=== PATIENT | male | born 1955 | race Caucasian/White ===

== ENCOUNTER 2016-08-24 09:53 | Emergency (ER) | payer OTHER ==
[2016-08-24 09:57] VITALS: RESP 18
--- NOTE | 2016-08-24 10:10 | CPEKG ---
Heart Rate: 59 RR Interval: 1017 P-R Interval: 128 QRSD Interval: 100 QT Interval: 436 QTC Interval: 432 P [place]: 47 QRS [place]: 60 T Wave [place]: 30 EKG Severity - BORDERLINE ECG - EKG Impression: SINUS RHYTHM EKG Impression: PROBABLE LEFT ATRIAL ABNORMALITY Electronically Signed By: Jorden Beltrán 24-Aug-2016 15:51:41
[2016-08-24] MEDS ORDERED: CLOPIDOGREL BISULFATE 75 MG TAB PO ONE (10:37)
[2016-08-24] MEDS ORDERED: ACETAMINOPHEN 325 MG TAB PO ONE (10:40)
--- NOTE | 2016-08-24 10:43 | EDPHY ---
HPI/HX/ROS/PE/MDM Narrative: Chief complaint: Difficult using tongue and headache HPI: 61-year-old male who noticed 1 week ago they had some difficulty moving food around in his mouth with his tongue. The following day he developed a headache to a 7 8/10. He went to a conference and came back in symptoms have persisted. He was seen by his primary care physician yesterday arrange for outpatient MRI. He was called today and informed that the MRI showed internal carotid artery dissection on the left. He was instructed to come the emergency department for further evaluation. He denies any other neurologic symptoms. No vision changes. No difficulty ambulating. No weakness. No lightheadedness or dizziness. No nausea or vomiting. No chest pain or shortness of breath. 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 This was diagnosed 5 weeks after the onset of symptoms own there is no abnormality identified. He has been taking a statin and 325 mg of aspirin daily since. ROS: 10 point Review of Systems is negative except as noted in the HPI. Physical exam: Gen: Awake, Alert, No Distress HEENT: Nose: no rhinorrhea Eyes: PERRLA, EOMI Mouth: Moist mucosa Neck: Supple, no JVD Chest: nontender, lungs clear to auscultation Heart: S1, S2 normal, no murmur Abd: Soft, non-tender, no guarding Back: no CVA tenderness, no midline tenderness Ext: no edema, non-tender Skin: no rash Neuro: he has leftward tongue deviation, otherwise CN II-XII intact, Sensation grossly intact, Strength 5/5 in bilateral upper and lower extremities NIH score is 1. ED Course: 61-year-old male with a newly diagnosed internal carotid artery dissection. I reviewed his MRI findings with Dr. Pierson, neurology. There is no evidence of ischemic disease or stroke. The dissection is noted on the MRI with and without. Is not with an MRI of the of the brain. There are no other acute findings and a MR. Doctor mackey recommending anti-platelet therapy for him only. As the patient is already taking aspirin daily he will add on Plavix 75 mg. He will see the patient in his office this week. He is not believe the patient needs to be admitted for further workup needs to be initiated at this time. I have discussed this with the patient and he is in agreement. Will discharge. Will. Will given Plavix now and discharged with a prescription for the same follow up with doctor Dangelo. - Data Points Medications Given: Discontinued Medications Acetaminophen (Tylenol) 650 mg PO EDNOW ONE Stop: 08/24/16 10:41 Last Admin: 08/24/16 10:43 Dose: 650 mg Clopidogrel Bisulfate (Plavix) 75 mg PO EDNOW ONE Stop: 08/24/16 10:38 Last Admin: 08/24/16 10:42 Dose: 75 mg General Time Seen by Provider: 08/24/16 10:05 Initial Vital Signs: Initial Vital Signs Temperature (C) 36.6 C 08/24/16 09:55 Heart Rate 61 08/24/16 09:55 Respiratory Rate 18 08/24/16 09:55 Blood Pressure 168/107 H 08/24/16 09:55 O2 Sat (%) 98 08/24/16 09:55 O2 Delivery Mode Room Air Allergies/Adverse Reactions: No Known Allergies Allergy (Unverified 08/24/16 09:57) Home Medications: Medication Instructions Recorded Clopidogrel Bisulfate [Plavix] 75 mg PO DAILY #30 tablet 08/24/16 Departure - Departure Disposition: Home, Routine, Self-Care Clinical Impression: Internal carotid artery dissection Condition: Good Instructions: General Headache (ED) Additional Instructions: Take Plavix 75 mg every day. Follow up with Dr. Pierson this week, call later today for the next available appointment. Please notify his office staff that Dr. Pierson wanted to see you this week. Referrals: [place],. [Unknown] - As per Instructions Enrique Pierson MD [Medical Doctor] - As per Instructions Prescriptions: Clopidogrel Bisulfate [Plavix] 75 mg PO DAILY #30 tablet
[2016-08-24 10:46] VITALS: BP 149/100; PULSE 65; TEMP 97.5; O2SAT 95
== END 2016-08-24 10:55 | disposition home or self-care (01) ==
DX: I77.71 Dissection of carotid artery (principal)